=== PATIENT | female | born 1995 ===

== ENCOUNTER 2019-12-23 14:48 | Inpatient (IN) ==
[2019-12-23] MEDS ORDERED: MEPERIDINE 50 MG/1 ML VIAL IV PRN (15:39)
[2019-12-23] MEDS ORDERED: ONDANSETRON 4 MG/2 ML VIAL IV PRN (15:39)
[2019-12-23] MEDS ORDERED: DINOPROSTONE VAG GEL 10 MG SYRINGE VAG ONE (15:51)
[2019-12-23 16:25] LABS: Basophils % 0.4 % (0.0-0.8); Eosinophils % 0.3 % (0.00-10.9); Hematocrit 38.8 VOL% (35.7-47.0); Hemoglobin 12.8 GM/DL (12.0-16.0); Immature Granulocytes % 0.3 %; Immature Granulocytes Absolute 0.02 #; Lymphocytes % 15.1 % (21.3-54.2); Mean Corpuscular Volume 95.6 FL (87-102); Mean Platelet Volume 9.6 FL (9.6-12.0); Neutrophils % 74.9 % (38.7-73.9); Platelet Count 259 T/CUMM (130-400); Red Blood Count 4.06 MC/CUMM (3.8-5.5); Red Cell Distribution Width 13.6 % (9.3-17.3); White Blood Count 6.8 T/CUMM (4-12)
[2019-12-23 21:40] LABS: Apearance,Urine CLEAR (Clear); Bilirubin,Urine Negative (Negative); Blood, Urine Negative (Negative); Glucose,Urine (UA) Negative (Negative); Ketones,Urine Negative (Negative); Mucus,Urine Occasional /LPF (Occasional); Nitrite,Urine Negative (Negative); Protein,Urine Negative; RBC,Urine 8 /HPF (0-4); Squamous Epithelial Cell,Urine Occasional /HPF (0-10); Urine Color Yellow (Yellow); Urine Specific Gravity 1.029 (1.001-1.035); WBC,Urine 3 /HPF (0-6)
[2019-12-23 22:06] LABS: Barbiturates Screen,Urine Negative (Negative); Benzodiazepines Screen,Urine Negative (Negative); Cannabinoid Screen,Urine Negative (Negative); Opiate Screen,Urine Negative (Negative); Phencyclidine Screen,Urine Negative (Negative)
[2019-12-24] MEDS: BUTORPHANOL 2 MG/ML VIAL IV PRN ×2 (02:17→06:07)
[2019-12-24] MEDS ORDERED: OXYTOCIN/LR 20 UNIT/1,000 ML BAG IV SCH (05:00)
[2019-12-24] MEDS ORDERED: NALOXONE 0.4 MG/ML VIAL IV PRN (05:59)
[2019-12-24] MEDS ORDERED: ONDANSETRON 4 MG/2 ML VIAL IV ONE (05:59)
[2019-12-24] MEDS ORDERED: FAMOTIDINE 20 MG/2 ML VIAL IV ONE (05:59)
[2019-12-24] MEDS ORDERED: LACTATED RINGERS 1,000 ML IV ONE (05:59)
[2019-12-24] MEDS ORDERED: ePHEDrine 50 MG/ML AMP IV PRN (05:59)
[2019-12-24] MEDS ORDERED: CITRIC ACID/SODIUM CITRATE 30 ML UDCUP PO ONE (05:59)
[2019-12-24] MEDS ORDERED: diphenhydrAMINE 50 MG/1 ML VIAL IV PRN (05:59)
[2019-12-24] MEDS ORDERED: fentaNYL 2 MCG/ROPIV 0.2% EPID 100 ML EPIDURAL SCH (06:00)
[2019-12-24] MEDS ORDERED: LACTATED RINGERS 1,000 ML IV SCH ×2 (06:00)
[2019-12-24] MEDS ORDERED: TRANEXAMIC ACID 1,000 MG/10 ML VIAL ONE (08:20)
[2019-12-24] MEDS ORDERED: miSOPROStoL 200 MCG TABLET ONE (08:20)
[2019-12-24] MEDS ORDERED: METHYLERGONOVINE 0.2 MG/1 ML AMP ONE (08:21)
[2019-12-24] MEDS ORDERED: CARBOPROST TROMETHAMINE 250 MCG/ML AMP IM ONE (08:21)
[2019-12-24] MEDS ORDERED: OXYTOCIN/LR 20 UNIT/1,000 ML BAG IV ONE ×3 (08:22→13:18)
[2019-12-24] MEDS ORDERED: OXYTOCIN/D5LR 20 UNIT/1,000 ML PREMIX IV ONE (08:24)
[2019-12-24] MEDS ORDERED: ACETAMINOPHEN 500 MG TABLET PO ONE (11:32)
[2019-12-24] MEDS ORDERED: NEOSTIGMINE 10 MG/10 ML VIAL ONE (12:16)
[2019-12-24] MEDS ORDERED: ATROPINE 0.4 MG/1 ML VIAL ONE ×2 (12:16→17:37)
[2019-12-24] MEDS ORDERED: BISACODYL 10 MG SUPP RECTAL PRN (13:18)
[2019-12-24] MEDS ORDERED: LANOLIN 50% CREAM 0.3 OZ TUBE TOP PRN (13:18)
[2019-12-24] MEDS ORDERED: oxyCODONE/ACETAMINOPHEN 5-325 MG TABLET PO PRN (13:18)
[2019-12-24] MEDS ORDERED: WITCH HAZEL PADS 100/JAR TOP PRN (13:18)
[2019-12-24] MEDS ORDERED: ACETAMINOPHEN 325 MG TABLET PO PRN (13:18)
[2019-12-24] MEDS ORDERED: RHO(D) IMMUNE GLOBULIN 300 MCG SYRINGE IM ONE (13:18)
[2019-12-24] MEDS ORDERED: HYDROCORTISONE 2.5% RECTAL CREAM 30 GM TUBE TOP PRN (13:18)
[2019-12-24] MEDS ORDERED: BENZOCAINE 20%/MENTHOL 0.5% SPRAY 56 GM CAN TOP PRN (13:18)
[2019-12-24] MEDS ORDERED: DIPH/TET/ACEL PERT BOOSTER VACCINE 0.5 ML VIAL IM ONE (13:18)
[2019-12-24] MEDS ORDERED: MEASLES/MUMPS/RUBELLA VACCINE 0.5 ML VIAL SUBCUT ONE (13:18)
[2019-12-24] MEDS: IBUPROFEN 800 MG TABLET PO PRN (15:35)
[2019-12-24] MEDS: oxyCODONE/ACETAMINOPHEN 5-325 MG TABLET PO PRN (15:35)
[2019-12-24] MEDS: DOCUSATE SODIUM 100 MG CAPSULE PO SCH (22:10)
[2019-12-25] MEDS: IBUPROFEN 800 MG TABLET PO PRN ×2 (01:32→22:34)
[2019-12-25 05:41] LABS: Basophils % 0.4 % (0.0-0.8); Eosinophils # 0.1 10*3/uL (0.0-0.87); Hematocrit 31.3 VOL% (35.7-47.0); Hemoglobin 10.5 GM/DL (12.0-16.0); Immature Granulocytes % 0.4 %; Immature Granulocytes Absolute 0.03 #; Lymphocytes % 24.8 % (21.3-54.2); Mean Corpuscular HGB Conc 33.5 GM/DL (32-36); Mean Corpuscular Volume 96.3 FL (87-102); Mean Platelet Volume 9.4 FL (9.6-12.0); Monocytes % 7.5 % (1.7-12.7); Neutrophils % 65.9 % (38.7-73.9); Platelet Count 182 T/CUMM (130-400); Red Blood Count 3.25 MC/CUMM (3.8-5.5); Red Cell Distribution Width 13.7 % (9.3-17.3); White Blood Count 7.9 T/CUMM (4-12)
[2019-12-25] MEDS: DOCUSATE SODIUM 100 MG CAPSULE PO SCH ×2 (08:25→21:04)
[2019-12-25] MEDS: oxyCODONE/ACETAMINOPHEN 5-325 MG TABLET PO PRN ×2 (17:26→23:30)
[2019-12-26] MEDS: DOCUSATE SODIUM 100 MG CAPSULE PO SCH (09:37)
[2019-12-26] MEDS: IBUPROFEN 800 MG TABLET PO PRN (09:38)
[2019-12-26 11:57] VITALS: BP 127/69
== END 2019-12-26 14:35 | disposition home or self-care (01) | DRG 560 ==
LOC: N.LDOUT 14:48 → N.LD 14:54 → N.OB 12-24 13:34
PROVIDERS: ADMIT Obstetrics & Gynecology; ATTEND Obstetrics & Gynecology

== ENCOUNTER 2021-01-24 04:03 | Inpatient (IN) ==
[2021-01-24] MEDS ORDERED: ONDANSETRON 4 MG/2 ML VIAL IV PRN ×2 (04:11→18:51)
[2021-01-24] MEDS ORDERED: MEPERIDINE 50 MG/1 ML VIAL IV PRN (04:11)
[2021-01-24] MEDS ORDERED: FAMOTIDINE 20 MG/2 ML VIAL IV PRN (04:11)
[2021-01-24] MEDS ORDERED: BUTORPHANOL 2 MG/ML VIAL IV PRN (04:11)
[2021-01-24 04:40] LABS: Basophils % 0.3 % (0.0-0.8); Eosinophils # 0.1 10*3/uL (0.0-0.87); Eosinophils % 1.1 % (0.00-10.9); Hematocrit 31.3 VOL% (35.7-47.0); Hemoglobin 10.4 GM/DL (12.0-16.0); Immature Granulocytes % 0.3 %; Immature Granulocytes Absolute 0.02 #; Lymphocytes # 1.5 10*3/uL (1.4-4.0); Lymphocytes % 23.1 % (21.3-54.2); Mean Corpuscular HGB Conc 33.2 GM/DL (32-36); Mean Corpuscular Volume 87.2 FL (87-102); Monocytes % 9.5 % (1.7-12.7); Neutrophils % 65.7 % (38.7-73.9); Platelet Count 230 T/CUMM (130-400); Red Blood Count 3.59 MC/CUMM (3.8-5.5); Red Cell Distribution Width 14.8 % (9.3-17.3); White Blood Count 6.5 T/CUMM (4-12)
[2021-01-24 05:04] LABS: Alanine Aminotransferase < 9 U/L (13-56); Albumin 2.5 G/DL (3.4-5.0); Alkaline Phosphatase 184 U/L (45-117); Aspartate Amino Transferase 15 U/L (0-37); Blood Urea Nitrogen 17 MG/DL (7-18); Calcium 8.6 MG/DL (8.5-10.1); Carbon Dioxide 22 MMOL/L (21-32); Estimated Glom Filtration Rate 110 ML/MIN; Glucose 76 MG/DL (74-106); Osmolality,Calculated 279.4 MOS/KG (273-304); Potassium 4.1 MMOL/L (3.5-5.1); Sodium 140 MMOL/L (136-145); Total Protein 6.4 G/DL (6.4-8.2)
[2021-01-24] MEDS ORDERED: AMPICILLIN INJ 2,000 MG in SODIUM CHLORIDE 0.9% 100 ML IV ONE (06:00)
[2021-01-24] MEDS ORDERED: OXYTOCIN/LR 20 UNIT/1,000 ML BAG IV SCH (06:00)
[2021-01-24] MEDS: LACTATED RINGERS 1,000 ML IV SCH ×2 (06:05→08:54)
[2021-01-24 07:06] LABS: INR 0.9; PT Patient Result 9.6 SECS (9.8-11.9); Partial Thromboplastin Time 31.9 SECS (23.9-33.8)
[2021-01-24] MEDS ORDERED: hydrOXYzine HCL 25 MG/1 ML VIAL IM PRN (07:26)
[2021-01-24] MEDS ORDERED: NALOXONE 0.4 MG/ML VIAL IV PRN (07:26)
[2021-01-24] MEDS ORDERED: CITRIC ACID/SODIUM CITRATE 30 ML UDCUP PO ONE (07:26)
[2021-01-24] MEDS ORDERED: ePHEDrine 50 MG/ML VIAL IV PRN (07:26)
[2021-01-24] MEDS ORDERED: PROMETHAZINE 25 MG/1 ML VIAL IM PRN (07:26)
[2021-01-24] MEDS ORDERED: fentaNYL 2 MCG/ROPIV 0.2% EPID 100 ML EPIDURAL SCH (07:30)
[2021-01-24] MEDS ORDERED: AMPICILLIN INJ 1,000 MG in SODIUM CHLORIDE 0.9% 100 ML IV SCH (10:00)
[2021-01-24 10:06] LABS: Bacteria,Urine Occasional /HPF (Few); Bilirubin,Urine Negative (Negative); Blood, Urine Small mg/dL (Negative); Glucose,Urine (UA) Negative (Negative); Ketones,Urine Negative (Negative); Mucus,Urine Occasional /LPF (Occasional); Nitrite,Urine Negative (Negative); Protein,Urine 100 MG/DL; RBC,Urine 6 /HPF (0-4); Squamous Epithelial Cell,Urine Few /HPF (0-10); Urine Appearance CLEAR (Clear); Urine Color Straw (Yellow); Urine Urobilinogen < 2.0 EU/DL (0.2-1.0); WBC,Urine <1 /HPF (0-6)
[2021-01-24] MEDS ORDERED: miSOPROStoL 200 MCG TABLET ONE ×2 (10:09→10:56)
[2021-01-24] MEDS ORDERED: METHYLERGONOVINE 0.2 MG/1 ML AMP ONE ×2 (10:09→10:56)
[2021-01-24] MEDS ORDERED: CARBOPROST TROMETHAMINE 250 MCG/ML AMP IM ONE ×2 (10:10→10:57)
[2021-01-24] MEDS ORDERED: LIDOCAINE MPF 2% /EPI 20 ML VIAL ONE (10:24)
[2021-01-24] MEDS ORDERED: ceFAZolin 2,000 MG in PREMIX 1 EACH IV ONE (10:54)
[2021-01-24] MEDS ORDERED: TERBUTALINE 1 MG/1 ML VIAL SUBCUT ONE (10:55)
[2021-01-24] MEDS ORDERED: TERBUTALINE 1 MG/1 ML VIAL ONE (10:55)
[2021-01-24] MEDS ORDERED: OXYTOCIN/LR 30 UNIT/1,000 ML BAG IV ONE (10:56)
[2021-01-24] MEDS ORDERED: TRANEXAMIC ACID 1,000 MG/10 ML VIAL ONE (10:56)
[2021-01-24] MEDS ORDERED: OXYTOCIN/LR 0 UNIT/0 ML BAG IV ONE (10:56)
[2021-01-24] MEDS ORDERED: OXYTOCIN 10 UNIT/ML VIAL IM ONE (10:56)
[2021-01-24] MEDS ORDERED: PHENYLEPHRINE 1 MG/10 ML SYRINGE IV ONE ×2 (11:29→11:50)
[2021-01-24] MEDS ORDERED: BUPIVACAINE SPINAL 0.75% 2 ML AMP SPINAL ONE (11:29)
[2021-01-24] MEDS ORDERED: ONDANSETRON 4 MG/2 ML VIAL ONE (11:30)
[2021-01-24] MEDS ORDERED: SODIUM CHLORIDE 0.9% 1,000 ML IV PRN ×3 (11:44→11:56)
[2021-01-24 11:50] LABS: Cord Arterial Blood HCO3 24.3 MMOL/L
[2021-01-24 11:51] LABS: Cord Venous Blood HCO3 19.9 MMOL/L; Cord Venous Blood PCO2 42.7 MMHG; Cord Venous Blood PO2 29.1
[2021-01-24] MEDS ORDERED: ePHEDrine 50 MG/ML VIAL ONE (11:52)
[2021-01-24] MEDS ORDERED: KETOROLAC 30 MG/1 ML VIAL IV SCH (13:30)
[2021-01-24] MEDS ORDERED: ACETAMINOPHEN INJ 1,000 MG in PREMIX 1 EACH IV ONE ×2 (13:30→15:30)
[2021-01-24 18:00] LABS: Basophils % 0.2 % (0.0-0.8); Hematocrit 29.9 VOL% (35.7-47.0); Hemoglobin 9.6 GM/DL (12.0-16.0); Immature Granulocytes % 0.3 %; Immature Granulocytes Absolute 0.03 #; Lymphocytes # 0.9 10*3/uL (1.4-4.0); Lymphocytes % 7.6 % (21.3-54.2); Mean Corpuscular HGB Conc 32.1 GM/DL (32-36); Mean Corpuscular Volume 88.2 FL (87-102); Mean Platelet Volume 10.1 FL (9.6-12.0); Monocytes % 6.7 % (1.7-12.7); Neutrophils % 85.2 % (38.7-73.9); Platelet Count 192 T/CUMM (130-400); Red Blood Count 3.39 MC/CUMM (3.8-5.5); Red Cell Distribution Width 15.3 % (9.3-17.3); White Blood Count 11.9 T/CUMM (4-12)
[2021-01-24] MEDS ORDERED: OXYTOCIN/LR 20 UNIT/1,000 ML BAG IV ONE (18:51)
[2021-01-24] MEDS ORDERED: SIMETHICONE CHEW 80 MG TABLET PO PRN (18:51)
[2021-01-24] MEDS ORDERED: RHO(D) IMMUNE GLOBULIN 300 MCG SYRINGE IM ONE (18:51)
[2021-01-24] MEDS ORDERED: MAGNESIUM HYDROXIDE SUSP 30 ML UDCUP PO PRN (18:51)
[2021-01-24] MEDS ORDERED: ACETAMINOPHEN 325 MG TABLET PO PRN (18:51)
[2021-01-24] MEDS ORDERED: ceFAZolin 1,000 MG in SYRINGE 1 EACH IV SCH ×2 (19:00→21:00)
[2021-01-24] MEDS ORDERED: LACTATED RINGERS 1,000 ML IV SCH (19:00)
[2021-01-24] MEDS ORDERED: ACETAMINOPHEN 500 MG TABLET PO SCH (19:30)
[2021-01-24] MEDS: ceFAZolin 1,000 MG in SYRINGE 1 EACH IV SCH (20:52)
[2021-01-24] MEDS: KETOROLAC 30 MG/1 ML VIAL IV SCH (20:58)
[2021-01-24] MEDS ORDERED: FERROUS SULFATE 325 MG TABLET PO SCH ×2 (21:00)
[2021-01-24] MEDS: DOCUSATE SODIUM 100 MG CAPSULE PO SCH (21:12)
[2021-01-24] MEDS: ACETAMINOPHEN 500 MG TABLET PO SCH (22:21)
[2021-01-25] MEDS: ACETAMINOPHEN 500 MG TABLET PO SCH ×2 (03:35→19:06)
[2021-01-25] MEDS: KETOROLAC 30 MG/1 ML VIAL IV SCH ×4 (03:36→21:00)
[2021-01-25] MEDS: ceFAZolin 1,000 MG in SYRINGE 1 EACH IV SCH (05:01)
[2021-01-25 05:50] LABS: Basophils % 0.2 % (0.0-0.8); Eosinophils % 0.2 % (0.00-10.9); Hematocrit 24.9 VOL% (35.7-47.0); Hemoglobin 7.9 GM/DL (12.0-16.0); Immature Granulocytes % 0.4 %; Immature Granulocytes Absolute 0.03 #; Lymphocytes # 1.1 10*3/uL (1.4-4.0); Lymphocytes % 14.2 % (21.3-54.2); Mean Corpuscular HGB Conc 31.7 GM/DL (32-36); Mean Corpuscular Volume 87.4 FL (87-102); Mean Platelet Volume 10.4 FL (9.6-12.0); Platelet Count 170 T/CUMM (130-400); Red Blood Count 2.85 MC/CUMM (3.8-5.5); Red Cell Distribution Width 15.8 % (9.3-17.3)
[2021-01-25] MEDS ORDERED: METOCLOPRAMIDE 10 MG TABLET PO SCH (08:00)
[2021-01-25] MEDS: FERROUS SULFATE 325 MG TABLET PO SCH ×2 (10:09→20:49)
[2021-01-25] MEDS: DOCUSATE SODIUM 100 MG CAPSULE PO SCH ×2 (10:09→20:49)
[2021-01-25] MEDS: MULTIVITAMIN (PRENATAL) TABLET PO SCH (10:09)
[2021-01-25] MEDS: IBUPROFEN 800 MG TABLET PO PRN ×2 (11:10→19:59)
[2021-01-26] MEDS: KETOROLAC 30 MG/1 ML VIAL IV SCH (03:40)
[2021-01-26] MEDS ORDERED: SODIUM CHLORIDE 0.9% 1,000 ML IV PRN (09:37)
[2021-01-26] MEDS: FERROUS SULFATE 325 MG TABLET PO SCH (10:31)
[2021-01-26] MEDS: MULTIVITAMIN (PRENATAL) TABLET PO SCH (10:31)
[2021-01-26] MEDS: DOCUSATE SODIUM 100 MG CAPSULE PO SCH (10:31)
[2021-01-26] MEDS: IBUPROFEN 800 MG TABLET PO PRN (10:33)
[2021-01-26 11:14] LABS: Hematocrit 23.6 VOL% (35.7-47.0); Hemoglobin 7.5 GM/DL (12.0-16.0)
[2021-01-26 14:43] LABS: Hematocrit 26.8 VOL% (35.7-47.0); Hemoglobin 8.7 GM/DL (12.0-16.0)
[2021-01-26 15:01] VITALS: BP 142/86
== END 2021-01-26 15:35 | disposition home or self-care (01) | DRG 540 ==
LOC: N.LDOUT 04:03 → N.LD 04:05 → N.OB 15:47
PROVIDERS: ADMIT Obstetrics & Gynecology; ATTEND Obstetrics & Gynecology
PROC: LDCSECT (ICD-10-PCS; 2021-01-24 11:00)

== ENCOUNTER 2021-12-09 07:21 | Inpatient (IN) ==
[2021-12-09] MEDS ORDERED: FAMOTIDINE 20 MG/2 ML VIAL IV ONE (08:05)
[2021-12-09] MEDS ORDERED: ceFAZolin 3,000 MG in SYRINGE 1 EACH IV ONE (08:05)
[2021-12-09] MEDS ORDERED: CITRIC ACID/SODIUM CITRATE 30 ML UDCUP PO ONE (08:05)
[2021-12-09] MEDS ORDERED: OXYTOCIN/LR 30 UNIT/1,000 ML BAG IV ONE (08:07)
[2021-12-09] MEDS ORDERED: OXYTOCIN 10 UNIT/ML VIAL IM ONE (08:07)
[2021-12-09 08:20] LABS: Basophils % 0.3 % (0.0-0.8); Eosinophils # 0.1 10*3/uL (0.0-0.87); Eosinophils % 1.3 % (0.00-10.9); Hematocrit 34.7 VOL% (35.7-47.0); Hemoglobin 11.6 GM/DL (12.0-16.0); Immature Granulocytes % 0.3 %; Immature Granulocytes Absolute 0.02 #; Lymphocytes # 1.2 10*3/uL (1.4-4.0); Lymphocytes % 19.4 % (21.3-54.2); Mean Corpuscular HGB Conc 33.4 GM/DL (32-36); Mean Corpuscular Volume 91.1 FL (87-102); Mean Platelet Volume 9.4 FL (9.6-12.0); Monocytes % 7.9 % (1.7-12.7); Neutrophils % 70.8 % (38.7-73.9); Platelet Count 260 T/CUMM (130-400); Red Blood Count 3.81 MC/CUMM (3.8-5.5); Red Cell Distribution Width 14.6 % (9.3-17.3); White Blood Count 6.2 T/CUMM (4-12)
[2021-12-09] MEDS ORDERED: LACTATED RINGERS 1,000 ML IV SCH ×2 (08:30→12:00)
[2021-12-09] MEDS ORDERED: miSOPROStoL 200 MCG TABLET ONE (08:46)
[2021-12-09] MEDS ORDERED: METHYLERGONOVINE 0.2 MG/1 ML AMP ONE (08:47)
[2021-12-09 08:49] LABS: Alanine Aminotransferase 14 U/L (13-56); Albumin 2.3 G/DL (3.4-5.0); Alkaline Phosphatase 152 U/L (45-117); Aspartate Amino Transferase 17 U/L (0-37); Bilirubin,Total < 0.39 MG/DL (0.20-1.00); Blood Urea Nitrogen 13 MG/DL (7-18); Calcium 8.1 MG/DL (8.5-10.1); Carbon Dioxide 20 MMOL/L (21-32); Estimated Glom Filtration Rate 131 ML/MIN; Glucose 87 MG/DL (74-106); Osmolality,Calculated 275.5 MOS/KG (273-304); Potassium 3.4 MMOL/L (3.5-5.1); Sodium 139 MMOL/L (136-145); Total Protein 6.4 G/DL (6.4-8.2)
[2021-12-09] MEDS ORDERED: ONDANSETRON 4 MG/2 ML VIAL ONE (09:11)
[2021-12-09] MEDS ORDERED: BUPIVACAINE SPINAL 0.75% 2 ML AMP SPINAL ONE (09:11)
[2021-12-09] MEDS ORDERED: KETOROLAC 30 MG/1 ML VIAL ONE (09:45)
[2021-12-09] MEDS ORDERED: LACTATED RINGERS 1,000 ML IV ONE (09:45)
[2021-12-09 10:08] LABS: Cord Venous Blood PCO2 46.6 MMHG; Cord Venous Blood PO2 29.3
[2021-12-09 10:13] LABS: Bacteria,Urine Occasional /HPF (Few)
[2021-12-09 10:14] LABS: Bilirubin,Urine Negative (Negative); Blood, Urine Negative (Negative); Glucose,Urine (UA) Negative (Negative); Ketones,Urine Negative (Negative); Nitrite,Urine Negative (Negative); Protein,Urine Negative; Urine Appearance Clear (Clear); Urine Color Yellow (Yellow); Urine Specific Gravity 1.025 (1.001-1.035); Urine Urobilinogen 0.2 EU/DL (<2.0)
[2021-12-09] MEDS ORDERED: OXYTOCIN/LR 20 UNIT/1,000 ML BAG IV ONE (11:43)
[2021-12-09] MEDS ORDERED: RHO(D) IMMUNE GLOBULIN 300 MCG SYRINGE IM ONE (11:43)
[2021-12-09] MEDS ORDERED: ACETAMINOPHEN 325 MG TABLET PO PRN (11:43)
[2021-12-09] MEDS ORDERED: ONDANSETRON 4 MG/2 ML VIAL IV PRN (11:43)
[2021-12-09] MEDS ORDERED: IBUPROFEN 800 MG TABLET PO PRN (11:43)
[2021-12-09] MEDS ORDERED: ACETAMINOPHEN 500 MG TABLET PO SCH (13:00)
[2021-12-09] MEDS ORDERED: KETOROLAC 30 MG/1 ML VIAL IV SCH (16:00)
[2021-12-09 17:40] LABS: Basophils % 0.2 % (0.0-0.8); Eosinophils # 0.1 10*3/uL (0.0-0.87); Eosinophils % 0.7 % (0.00-10.9); Hematocrit 32.5 VOL% (35.7-47.0); Hemoglobin 10.8 GM/DL (12.0-16.0); Immature Granulocytes % 0.4 %; Immature Granulocytes Absolute 0.03 #; Lymphocytes # 1.1 10*3/uL (1.4-4.0); Lymphocytes % 13.3 % (21.3-54.2); Mean Corpuscular HGB Conc 33.2 GM/DL (32-36); Mean Corpuscular Volume 92.1 FL (87-102); Mean Platelet Volume 9.3 FL (9.6-12.0); Monocytes % 6.8 % (1.7-12.7); Neutrophils % 78.6 % (38.7-73.9); Platelet Count 227 T/CUMM (130-400); Red Blood Count 3.53 MC/CUMM (3.8-5.5); Red Cell Distribution Width 14.5 % (9.3-17.3); White Blood Count 8.2 T/CUMM (4-12)
[2021-12-09] MEDS: DOCUSATE SODIUM 100 MG CAPSULE PO SCH (21:27)
[2021-12-09] MEDS: KETOROLAC 30 MG/1 ML VIAL IV SCH (21:28)
[2021-12-09] MEDS: POTASSIUM CHLORIDE 20 MEQ TABLET PO PRN (21:52)
[2021-12-10] MEDS: POTASSIUM CHLORIDE 20 MEQ TABLET PO PRN ×2 (00:03→01:59)
[2021-12-10] MEDS: KETOROLAC 30 MG/1 ML VIAL IV SCH ×2 (03:35→09:20)
[2021-12-10 05:06] LABS: Basophils % 0.3 % (0.0-0.8); Eosinophils # 0.1 10*3/uL (0.0-0.87); Eosinophils % 1.3 % (0.00-10.9); Hematocrit 30.3 VOL% (35.7-47.0); Hemoglobin 9.8 GM/DL (12.0-16.0); Immature Granulocytes % 0.3 %; Immature Granulocytes Absolute 0.02 #; Lymphocytes # 1.3 10*3/uL (1.4-4.0); Lymphocytes % 21.5 % (21.3-54.2); Mean Corpuscular HGB Conc 32.3 GM/DL (32-36); Mean Corpuscular Volume 92.4 FL (87-102); Mean Platelet Volume 9.7 FL (9.6-12.0); Monocytes % 7.8 % (1.7-12.7); Neutrophils % 68.8 % (38.7-73.9); Platelet Count 210 T/CUMM (130-400); Red Blood Count 3.28 MC/CUMM (3.8-5.5); Red Cell Distribution Width 14.6 % (9.3-17.3); White Blood Count 6.1 T/CUMM (4-12)
[2021-12-10] MEDS: SIMETHICONE CHEW 80 MG TABLET PO PRN (09:20)
[2021-12-10] MEDS: METOCLOPRAMIDE 10 MG TABLET PO SCH ×2 (09:21→16:01)
[2021-12-10] MEDS: DOCUSATE SODIUM 100 MG CAPSULE PO SCH ×2 (09:21→21:29)
[2021-12-10] MEDS: MULTIVITAMIN (PRENATAL) TABLET PO SCH (09:21)
[2021-12-10] MEDS: MAGNESIUM HYDROXIDE SUSP 30 ML UDCUP PO PRN ×2 (09:21→21:29)
[2021-12-11] MEDS: MAGNESIUM HYDROXIDE SUSP 30 ML UDCUP PO PRN (08:14)
[2021-12-11] MEDS: METOCLOPRAMIDE 10 MG TABLET PO SCH (08:15)
[2021-12-11] MEDS: DOCUSATE SODIUM 100 MG CAPSULE PO SCH (08:15)
[2021-12-11] MEDS: MULTIVITAMIN (PRENATAL) TABLET PO SCH (08:15)
[2021-12-11] MEDS: SIMETHICONE CHEW 80 MG TABLET PO PRN (08:15)
[2021-12-11 08:38] VITALS: BP 125/67
== END 2021-12-11 11:07 | disposition home or self-care (01) | DRG 539 ==
LOC: N.LD 07:21 → N.OB 13:45
PROVIDERS: ADMIT Obstetrics & Gynecology; ATTEND Obstetrics & Gynecology